=== PATIENT | male | born 2000 | race African-American/Black ===

== ENCOUNTER 2023-01-24 00:01 | Emergency (ER) | payer OTHER, SELFPAY ==
[2023-01-24 00:02] VITALS: BP 113/70; PULSE 91; RESP 18; TEMP 37.2; O2SAT 100; BMI 25.4
--- NOTE | 2023-01-24 00:48 | EX.ED.DYSGE1 ---
HPI History of Present Illness Chief Complaint: General Illness Narrative Narrative: 22-year-old male who denies significant past medical history presents with sore throat, body aches and muscle aches that he has had for the last day. States it started out more as a sore throat. He has pain with swallowing. He may have had a slight cough. He took ibuprofen prior to arrival. He denies any neck pain, or other symptoms. He thinks he may have strep throat. He is a smoker. PFSH PFS Medical History no medical history Allergy/AdvReac Type Severity Reaction Status Date / Time coconut Allergy Mild Rash Verified 01/24/23 00:05 Social History Smoking Status: Current every day smoker tobacco type: cigarettes ROS ROS ED ROS Narrative Constitutional: No fever, no chills. HEENT: Positive sore throat. No neck pain. No loss of vision. No rhinorrhea. Cardiovascular: No chest pain. No palpitations. No pedal edema. Respiratory: Occasional cough, no shortness of breath. Abdominal: No abdominal pain. No nausea. No vomiting. Genitourinary: No dysuria. No hematuria. Musculoskeletal: Multiple myalgias. No arthralgias. Neurologic: No headaches. No dizziness. No lightheadedness. Skin: No rash. No change in color. Psychiatric: No depression. No anxiety. EXAM Physical Exam Narrative Exam Narrative: Afebrile. Vital signs noted. HEENT: Normocephalic. Atraumatic. PERRL, EOMI. Neck soft and supple. No point tenderness or step off. No meningismus. Positive pharyngeal erythema. Airway patent. No tonsillar exudate. No drooling or trismus. Questionable cervical lymphadenopathy. Cardiovascular: Regular rate and rhythm. No murmurs, rubs, or gallops appreciated. Respiratory: No tachypnea. Lungs clear to auscultation bilaterally. Gastrointestinal: Abdomen soft, nontender, with normoactive bowel sounds. No rebound or guarding. Neurological: Awake. Alert. Nonfocal, nonlateralizing. Skin: No rash. Normal color. No pallor. Musculoskeletal: No pedal edema. Full range of motion extremities. Const Vital Signs: 01/24/23 00:02 Temperature 99.0 F Temperature Source Temporal Pulse Rate 91 Respiratory Rate 18 Blood Pressure 113/70 Blood Pressure Mean 84 Pulse Ox 100 Oxygen Delivery Method Room Air MDM MDM MDM Narrative Medical decision making narrative: In the differential diagnosis is strep pharyngitis versus COVID versus influenza versus other viral etiology. His pulse ox is 100% on room air. I do not feel laboratory work/blood work or chest x-ray is indicated. He was swabbed for strep and for COVID and influenza. He will be given Decadron 8 mg orally as a one-time dose for pharyngitis. Reviewed his respiratory swabs and he has negative for COVID and influenza a and B, and his strep is negative with cultures pending. I do not feel antibiotics are indicated at this time. Treatment be symptomatic. Smoking cessation was discussed. I feel he can be discharged safely home and that he does not require observation at this time. Disposition is discharged home in stable condition. Discharge Plan Triage Chief Complaint: General Illness ED Provider: Jay Lance Dx/Rx/DC Orders Clinical Impression: Viral syndrome, Pharyngitis Instructions: When You Have a Sore Throat, ED Pharyngitis, Viral, ED Viral Syndrome (Adult) Stand Alone Forms: ED Work / School Excuse Primary Care Provider: NOT,DEFINED Referrals: Dominick Macias MD [Med Staff - Active Staff] - As soon as possible NOT,DEFINED [Primary Care Provider] - Activity Restrictions/Additional Instructions: Drink plenty of oral fluids. Take Tylenol or ibuprofen or other [id number] analgesics as needed for pain. Your strep throat culture is currently pending. They will call you if it becomes positive. Disposition Disposition: Home, Self Care
[2023-01-24] MEDS: dexAMETHasone 4 MG Tablet 8 MG PO (01:18)
== END 2023-01-24 01:31 | disposition home or self-care (01) ==
LOC: ED 01:27
PROVIDERS: Emergency Provider Emergency Medicine; Visit Provider Emergency Medicine
DX: J02.9 Acute pharyngitis, unspecified (principal); B34.9 Viral infection, unspecified; F17.210 Nicotine dependence, cigarettes, uncomplicated; Z20.822 Contact with and (suspected) exposure to COVID-19
CPT/HCPCS: 87077; 87428; 87880; 99283

== ENCOUNTER 2023-02-01 18:37 | Emergency (ER) | payer OTHER, SELFPAY ==
[2023-02-01 18:38] VITALS: BP 126/78; PULSE 89; RESP 14; TEMP 36.4; O2SAT 98; BMI 25.8
[2023-02-01 19:15] VITALS: BP 126/78; PULSE 89; RESP 14; O2SAT 98
--- NOTE | 2023-02-01 19:16 | EDS_ITS ---
HPI HPI - URI History of Present Illness Chief Complaint: Sore Throat Informant: patient Narrative Narrative: Patient presents for sore throat for about a week, he was seen here at the beginning of it and had a negative rapid strep, he states he has been taking ibuprofen but now the pain is only on the right and has been getting worse. He is able to swallow but it hurts, he is able to talk but it hurts. He had some fevers at the beginning but he has not had any more that he knows of. No coughing, runny nose, congestion, earache, or chest symptoms. ROS ROS ED Constitutional Constitutional ED: Reports fever(s) and subjective; Denies chills ENT ENT ED: Reports as per HPI and sore throat; Denies ear pain or rhinorrhea Cardiovascular Cardiovascular: Denies chest pain or palpitations Respiratory/Chest Respiratory/Chest: Denies cough or dyspnea Gastrointestinal Gastrointestinal: Denies abdominal pain, diarrhea, nausea or vomiting Genitourinary Genitourinary ED: Denies dysuria or hematuria Musculoskeletal Musculoskeletal: Denies myalgias or neck pain Integumentary Denies abscess or rash Neurologic Neurologic: Denies headache(s), paresthesias or weakness Psychiatric Psychiatric: Denies depression or suicidal thoughts Endocrine Endocrinology: Denies polydipsia or polyuria PFSH PFSH Medical History no medical history no medical history Home Medications amoxicillin 500 mg tablet 500 mg PO TID #30 tabs 02/01/23 [Rx Last Taken Unk nown] Allergy/AdvReac Type Severity Reaction Status Date / Time coconut Allergy Mild Rash Verified 02/01/23 18:39 Social History Smoking Status: Current every day smoker tobacco type: cigarettes EXAM Physical Exam Const Vital Signs: 02/01/23 18:38 Temperature 97.6 F L Temperature Source Oral Pulse Rate 89 Respiratory Rate 14 Blood Pressure 126/78 H Blood Pressure Mean 94 Pulse Ox 98 Oxygen Delivery Method Room Air Positive well nourished and well developed General Appearance ED: well developed and NAD HEENT Reports moist mucous membranes HEENT Narrative: Posterior oropharyngeal and bilateral tonsillar erythema. No exudates. Prominence of the right tonsillar pillar without abscess. No trismus. Floor of mouth soft and nondistended no tongue elevation. normocephalic and atraumatic Throat: posterior oropharynx abnormal Eyes PERRL and EOMs intact bilaterally Neck supple and no meningeal signs Neck Narrative: Mild tender right submandibular anterior lymphadenopathy no posterior lymphadenopathy. Resp normal respiratory effort and clear to auscultation bilaterally Cardio no murmurs Rate: regular rate Rhythm: regular rhythm Neuro oriented x3, CN's II-XII intact bilaterally and no sensory deficits noted Sensorium / Orientation: alert Motor Exam: strength 5/5 throughout Skin Lesions: no lesions Rashes: no rashes MDM MDM MDM Narrative Medical decision making narrative: This looks like peritonsillar cellulitis that I would treat empirically with antibiotics. I went back and reviewed his prior testing in the emergency department, he had a rapid strep that was negative, but apparently the culture returned positive for strep group A. Therefore, instead of treating him with Augmentin I think amoxicillin will be enough, he is comfortable with that plan. History & Record Review Additional record(s) reviewed:: Prior labs Discharge Plan Triage Chief Complaint: Sore Throat ED Provider: Pro Stearns Dx/Rx/DC Orders Clinical Impression: Peritonsillar cellulitis, Strep throat Instructions: ED Pharyngitis, Strep (Confirmed) Prescriptions: New amoxicillin 500 mg tablet 500 mg PO TID Qty: 30 0RF Primary Care Provider: Care Physician,No Primary Referrals: Doctor,Your [Non-Staff] - 1 Week if not improving Disposition Disposition: Home, Self Care
== END 2023-02-01 19:30 | disposition home or self-care (01) ==
PROVIDERS: Emergency Provider Emergency Medicine; Visit Provider Emergency Medicine
DX: J36 Peritonsillar abscess (principal); F17.210 Nicotine dependence, cigarettes, uncomplicated
CPT/HCPCS: 99282

== ENCOUNTER 2023-06-03 17:10 | Emergency (ER) | payer OTHER, SELFPAY ==
[2023-06-03 17:10] VITALS: BP 96/77; PULSE 117; RESP 16; TEMP 37.2; O2SAT 98; BMI 23.1
--- NOTE | 2023-06-03 19:06 | ED.RN ---
PT NOT IN DEPT
--- OUTSIDE RECORDS SUMMARY | 2023-06-03 19:12 | XMS RPT_ITS | CCD ---
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 14 capsule 0 12/27/2022 01/03/2023 Active Completed/Discontinued Medications Medication Drug Class(es) Dates Sig (Normalized) Sig (Original) cefTRIAXone 500 mg injection (1 source) Cephalosporin Antibacterial Start: 12-27-2022 End: 12-27-2022 cefTRIAXone 500 mg intramuscular injection (ROCEPHIN) Problems Problem Classification Problem Date Documented Da te Episodic/Chronic Immunizations and screening for infectious disease (1 source) Exposure to sexually transmissible disorder; Translations: [Contact with and (suspected) exposure to infections with a predominantly sexual mode of transmission] 12-27-2022 Episodic Results Test Name Value Interpretation Reference Range Facil ity Vital Signs Date Time Vital Sign Value Performing Clinician Faci litgabe 12-27-2022 17:07-0400 Body temperature 97.81 [degF] Jesus Manuel Galvez APRN.CNP Work Phone: [facility] 12-27-2022 17:07-0400 Body weight 72.67 kg Jesus Manuel Galvez APRN.CNP Work Phone: [facility] 12-27-2022 17:07-0400 Diastolic blood pressure 64 mm[Hg] Jesus Manuel Galvez APRN.LABOR ECONOMIST Work Phone: [facility] 12-27-2022 17:07-0400 Heart rate 79 /min Jesus Manuel Penddeloris MALWARE ANALYST.LABOR ECONOMIST Work Phone: [facility] 12-27-2022 17:07-0400 Respiratory rate 16 /min Jesus Manuel Lenny MALWARE ANALYST.LABOR ECONOMIST Work Phone: [facility] 12-27-2022 17:07-0400 SaO2% (BldA) [Mass fraction] 98 % Jesus Manuel Lenny MALWARE ANALYST.LABOR ECONOMIST Work Phone: [facility] 12-27-2022 17:07-0400 Systolic blood pressure 122 mm[Hg] [facility] MALWARE ANALYST.LABOR ECONOMIST Work Phone: [facility] Encounters Encounter Date Encounter Type Care Provider Facility Start: 01-20-2023 Telephone encounter Fauzia Gordo Christianson Ph Work Phone: Infectious Disease Plan of Treatment Date Care Activity Detail Author Start: 01-03-2023 Influenza vaccination [facility] Start: 05-05-2022 DEPRESSION ASSESSMENT DEPRESSION ASSESSMENT [facility] Start: 07-18-2019 Urine microalbumin profile [facility] Start: 2018 HEPATITIS C SCREENING HEPATITIS C SCREENING [facility] Start: 2018 HIV SCREENING HIV SCREENING [facility] Start: 2016 Meningococcal B Vaccine: Consider Based On Risk (1 of 2 - Patient Seeks Protection) Meningococcal B Vaccine: Consider Based On Risk (1 of 2 - Patient Seeks Protection) [facility] Start: 2016 MENINGOCOCCAL B: Consider based on risk (1 of 2 - Patient Seeks Protection) MENINGOCOCCAL B: Consider based on risk (1 of 2 - Patient Seeks Protection) [facility] Start: 2014 PEDS TO ADULT TRANSITION ANNUAL ASSESSMENT PEDS TO ADULT TRANSITION ANNUAL ASSESSMENT [facility] Start: 2012 PEDS TO ADULT TRANSITION INITIAL DISCUSSION PEDS TO ADULT TRANSITION INITIAL DISCUSSION [facility] Start: 2009 HPV VACCINE (1 - Male 2-dose series) HPV VACCINE (1 - Male 2-dose series) [facility] Start: 2006 PNEUMOCOCCAL (1 - PCV) PNEUMOCOCCAL (1 - PCV) [facility] Start: 2006 Pneumococcal vaccination Pneumococcal Vaccine (1 - PCV) [facility] Start: 01-17-2001 COVID-19 VACCINE (#1) COVID-19 VACCINE (#1) [facility] Start: 2000 HEPATITIS B (1 of 3 - 3-dose series) HEPATITIS B (1 of 3 - 3-dose series) [facility] Start: 2000 Hepatitis B Vaccine (1 of 3 - 3-dose series) Hepatitis B Vaccine (1 of 3 - 3-dose series) [facility] Chlamydia trachomatis+Neisseria gonorrhoeae DNA [Presence] in Unspecified specimen by REYES with probe detection GONORRHEA/CHLAMYDIA NAAT Lab Routine STD exposure 12/27/2022 5:55 PM EDT [facility] Work Phone: Payers Date Payer Category Payer Unknown [facility] PPO xx [id number] 2019-Present [phone] [address] [place] [address] PPO [id number] 2019 Unknown [id number] Social History Date Type Detail Facility Start: [facility] History of tobacco use Cigarette Smoker [facility] Start: 12-27-2022 Tobacco use and exposure Smoke less tobacco non-user [facility] Start: 04-14-2020 End: 12-27-2022 History of Social function [facility] Start: 04-14-2020 End: 12-27-2022 Tobacco use panel [facility] National Score (1-10 0), lower number is lower risk Not on file [facility] Start: 2000 Sex Assigned At Not on file [facility] Note 01-03-2023 Telephone Encounter - Alia Allen MA - 01/03/2023 11:00 AM EDTTelephone Encounter - Carolin Hurst - 12/30/2022 5:54 PM EDTTelephone Encounter - Billie Rubin MA - 12/30/2022 8:14 AM EDT Note Date & Type Note Facility 01-03-2023 Miscellaneous Notes Formattin g of this note might be different from the original. Patient has not returned calls and does not have active MyChart. Address listed also incorrect. Patient was treated at time of visit for listed conditions. Encounter will be closed. Alia Allen MA Unable to reach patient. Mailbox full/Mailbox not set up/ Number incorrect. Please try again later. Carolin Hurst Attempted to call pt again, no answer. Voicemail is not set up will try again later. Billie Rubin MA Attempted to call pt, voicemail isn't set up. Will try again later. Billie Rubin MA ----- Message from Savannah Kwon APRN.LABOR ECONOMIST sent at 12/28/2022 3:45 PM EDT ----- Gonorrhea and chlamydia tests were positive. He was treated for both of these at the visit. He should refrain from intercourse until treatment is complete. All partners should be advised and tested. Savannah Kwon APRN.LABOR ECONOMIST documented in this encounter [facility] Progress note 12-27-2022 Note Date & Type Note Facility 12-27-2022 Note HNO ID: [id number] Author: Jesus Manuel Galvez APRN.LABOR ECONOMIST Service: ? Author Type: Nurse Practitioner Type: Progress Notes Filed: 12/27/2022 5:58 PM Note Text: Subjective HPI Nontoxic male presents urgent care requesting STD testing. Patient states girlfriend tested positive for chlamydia and gonorrhea. He has been sexually active with this partner multiple times over the last month. Does not use protection. Denies any symptoms. No OTC medication use. No pain. No dysuria frequency urgency penile discharge rashes testicular pain scrotal swelling testicular swelling. Past medical history prescription medication use allergies reviewed. .Patient presents with: STD check: STD check-girlfriend positive for gonorrheae and chlamydia History reviewed. No pertinent past medical history. No past surgical history on file. ALLERGIES Patient has no known allergies. MEDICATIONS No prescriptions on file. No family history on file. Social History Tobacco Use Smoking status: Every Day Types: Cigarettes Smokeless tobacco: Never BP 122/64 Pulse 79 Temp 36.6 ?C (97.8 ?F) (Tympanic) Resp 16 Wt 72.7 kg (160 lb 3.2 oz) SpO2 98% Review of Systems Constitutional: Negative for chills, fever and malaise/fatigue. HENT: Negative for congestion, ear discharge, ear pain, sinus pain and sore throat. Eyes: Negative for blurred vision, pain, discharge and redness. Respiratory: Negative for cough, hemoptysis, sputum production, shortness of breath, wheezing and stridor. Cardiovascular: Negative for chest pain. Gastrointestinal: Negative for abdominal pain, diarrhea, nausea and vomiting. Genitourinary: Negative. Musculoskeletal: Negative for myalgias. Skin: Negative for itching and rash. Neurological: Negative for dizziness and headaches. Objective Physical Exam Constitutional: General: He is not in acute distress. Appearance: He is not toxic-appearing. HENT: Head: Normocephalic. Nose: Nose normal. Eyes: Pupils: Pupils are equal, round, and reactive to light. Cardiovascular: Rate and Rhythm: Normal rate. Pulmonary: Effort: Pulmonary effort is normal. No respiratory distress. Breath sounds: No wheezing, rhonchi or rales. Abdominal: Palpations: Abdomen is soft. Tenderness: There is no abdominal tenderness. There is no right CVA tenderness, left CVA tenderness or guarding. Genitourinary: Comments: Deferred centimeters. Musculoskeletal: Cervical back: Normal range of motion. Skin: General: Skin is warm and dry. Neurological: General: No focal deficit present. Mental Status: He is alert. ASSESSMENT/PLAN: 1. STD exposure - ICD9: V01.6, ICD10: Z20.2 - GONORRHEA/CHLAMYDIA NAAT - CEFTRIAXONE 500 MG SOLUTION FOR INJECTION Diagnosis STD exposure. With positive exposure without protection patient will be treated for gonorrhea and chlamydia at today's visit. Rocephin IM in office doxycycline sent to pharmacy. Patient was educated on supportive therapies. Patient will follow up with primary care provider as needed. Patient was instructed to immediately proceed to emergency room for any new, worsening, or symptoms lasting longer than anticipated. The patient's clinical presentation is otherwise unremarkable at this time. Based on exam and clinical finding, the patient is stable for discharge. Plan of care was discussed with patient. Patient verbalizes understanding and agrees to plan of care. This note was generated using Myxer software. It may contain errors in wording, punctuation, or spelling. Jesus Manuel Galvez APRN.YAO [facility] History of Present illness Narrative 12-27-2022 Jesus Manuel Galvez APRN.YAO - 12/27/2022 5:14 PM EDT Note Date & Type Note Facility 12-27-2022 History of Presen t illness Narrative Subjective HPI Nontoxic male presents urgent care requesting STD testing. Patient states girlfriend tested positive for chlamydia and gonorrhea. He has been sexually active with this partner multiple times over the last month. Does not use protection. Denies any symptoms. No OTC medication use. No pain. No dysuria frequency urgency penile discharge rashes testicular pain scrotal swelling testicular swelling. Past medical history prescription medication use allergies reviewed. .Patient presents with: STD check: STD check-girlfriend positive for gonorrheae and chlamydia History reviewed. No pertinent past medical history. No past surgical history on file. ALLERGIES Patient has no known allergies. MEDICATIONS No prescriptions on file. No family history on file. Social History Tobacco Use Smoking status: Every Day Types: Cigarettes Smokeless tobacco: Never BP 122/64 Pulse 79 Temp 36.6 C (97.8 F) (Tympanic) Resp 16 Wt 72.7 kg (160 lb 3.2 oz) SpO2 98% Review of Systems Constitutional: Negative for chills, fever and malaise/fatigue. HENT: Negative for congestion, ear discharge, ear pain, sinus pain and sore throat. Eyes: Negative for blurred vision, pain, discharge and redness. Respiratory: Negative for cough, hemoptysis, sputum production, shortness of breath, wheezing and stridor. Cardiovascular: Negative for chest pain. Gastrointestinal: Negative for abdominal pain, diarrhea, nausea and vomiting. Genitourinary: Negative. Musculoskeletal: Negative for myalgias. Skin: Negative for itching and rash. Neurological: Negative for dizziness and headaches. Objective Physical Exam Constitutional: General: He is not in acute distress. Appearance: He is not toxic-appearing. HENT: Head: Normocephalic. Nose: Nose normal. Eyes: Pupils: Pupils are equal, round, and reactive to light. Cardiovascular: Rate and Rhythm: Normal rate. Pulmonary: Effort: Pulmonary effort is normal. No respiratory distress. Breath sounds: No wheezing, rhonchi or rales. Abdominal: Palpations: Abdomen is soft. Tenderness: There is no abdominal tenderness. There is no right CVA tenderness, left CVA tenderness or guarding. Genitourinary: Comments: Deferred centimeters. Musculoskeletal: Cervical back: Normal range of motion. Skin: General: Skin is warm and dry. Neurological: General: No focal deficit present. Mental Status: He is alert. ASSESSMENT/PLAN: 1. STD exposure - ICD9: V01.6, ICD10: Z20.2 - GONORRHEA/CHLAMYDIA NAAT - CEFTRIAXONE 500 MG SOLUTION FOR INJECTION Diagnosis STD exposure. With positive exposure without protection patient will be treated for gonorrhea and chlamydia at today's visit. Rocephin IM in office doxycycline sent to pharmacy. Patient was educated on supportive therapies. Patient will follow up with primary care provider as needed. Patient was instructed to immediately proceed to emergency room for any new, worsening, or symptoms lasting longer than anticipated. The patient's clinical presentation is otherwise unremarkable at this time. Based on exam and clinical finding, the patient is stable for discharge. Plan of care was discussed with patient. Patient verbalizes understanding and agrees to plan of care. This note was generated using Myxer software. It may contain errors in wording, punctuation, or spelling. Jesus Manuel Galvez APRN.YAO documented in this encounter [facility] Evaluation note Note Date & Type Note Facility documented in this encounter [facility] Medications Administered Section Inactive Administered Medications - up to 3 most recent administrations Medication Order MAR Action Action Date Dose Rate Site cefTRIAXone 500 mg intramuscular injection (ROCEPHIN) 500 mg, INTRAMUSCULAR, ONCE, 1 dose, On Fri12/27/22 at 1730, Please document the antimicrobial indication: Empiric Given 12/27/2022 5:55 PM EDT 500 mg Buttocks, Right Summary Purpose Family History No Family History Records Found Advance Directives No Advanced Directives Records Found Additional Source Comments Source Comments (unrecognize d section and content) In the event this informatio n is protected by the Federal Confidentiality of Alcohol and Drug Abuse Patient Records regulations: The Federal rules restrict any use of the information to criminally investigate or prosecute any alcohol or drug abuse patient.[facility] the event this information is protected by the Federal Confidentiality of Alcohol and Drug Abuse Patient Records regulations: The Federal rules restrict any use of the information to criminally investigate or prosecute any alcohol or drug abuse patient.[facility] the event this information is protected by the Federal Confidentiality of Alcohol and Drug Abuse Patient Records regulations: The Federal rules restrict any use of the information to criminally investigate or prosecute any alcohol or drug abuse patient.[facility] Reason for Visit (unrecogniz ed section and content) Reason Comments Results Reason Comments Education Of Patient/family HIV PrEP edu cation (unrecognized sect ion and content) No Status Records Found INFORMATION SOURCE (unrecogn ized section and content) FOR RECORDS PERTAINING TO PATIENTS WHO ARE OR HAVE BEEN ENROLLED IN A CHEMICAL DEPENDENCY/SUBSTANCEABUSE PROGRAM, SOME INFORMATION MAY BE OMITTED. This clinical summary was aggregated from multiple sources. Caution should be exercised in using it in the provision of clinical care. This summary normalizes information from multiple sources, and as a consequence, information in this document may materially change the coding, format and clinical context of patient data. In addition, data may be omitted in some cases. CLINICAL DECISIONS SHOULD BE BASED ON THE PRIMARY CLINICAL RECORDS. [facility] [employer] [facility]. provides no warranty or guarantee of the accuracy or completeness of information in this document.
== END 2023-06-03 18:23 | disposition left against medical advice (07) ==
LOC: ED 19:10
DX: R11.2 Nausea with vomiting, unspecified (principal); R19.7 Diarrhea, unspecified; Z53.21 Procedure and treatment not carried out due to patient leaving prior to being seen by health care provider

== ENCOUNTER 2023-07-10 18:14 | Emergency (ER) | payer OTHER, SELFPAY ==
[2023-07-10 18:15] VITALS: BP 138/77; PULSE 85; RESP 16; TEMP 36.8; O2SAT 98; BMI 23.3
--- NOTE | 2023-07-10 18:35 | RAD_ITS ---
STUDY: X-RAY - LEFT WRIST REASON FOR EXAM: Male, 22 years old. PAIN, INJURY TECHNIQUE: 3 view(s) of the wrist were obtained. COMPARISON: None. FINDINGS: Normal visualized distal radius and ulna. Normal radiocarpal articulation. Normal distal radioulnar articulation. Normal carpal bones. Normal carpal articulations. Normal carpometacarpal articulation of the thumb. Normal second through fifth carpometacarpal articulations. Normal visualized metacarpal bones. The soft tissue structures are unremarkable. RAD/Wrist min 3 Views IMPRESSION: Normal x-ray examination of the wrist. Electronically Signed: Jesus Manuel Villasenor MD at 19:18 EST ,
--- NOTE | 2023-07-10 20:35 | EDS_ITS ---
HPI History of Present Illness HPI Narrative: Patient presents with left wrist pain that began earlier today. Patient states he punched a wall. Patient states he punched a wall with both hands but his left wrist is worse. Patient states he took a nap after he punched the villagran but when he woke up his left wrist pain was severe. Patient states it felt similar to a prior wrist fracture he had in his right wrist years ago. Patient describes his pain as aching and stabbing. Patient states it is worse with movement and better with rest. Patient denies any paresthesias or weakness. Patient is unsure of his last tetanus. Chief Complaint: Upper Extremity Injury Informant: patient Occured/Mechanism Mechanism/Context: Yes direct blow Onset/Context/Timing Onset: Today Context: Gradual Onset Timing: Continuous Quality of Pain: Aching and Stabbing Worsened by: Movement Relieved by: Rest Associated Symptoms Associated Symptoms: Negative for Parasthesia, Weakness or Loss of Funtion Narrative Tetanus Immunization: Unknown PFSH PFSH Medical History no medical history no medical history Home Medications amoxicillin 500 mg tablet 500 mg PO TID #30 tabs 02/01/23 [Rx Last Taken Unknown] Allergy/AdvReac Type Severity Reaction Status Date / Time coconut Allergy Mild Rash Verified 07/10/23 18:15 Surgical History no surgical history no surgical history Social History Smoking Status: Current every day smoker tobacco type: cigarettes ROS ROS ED Constitutional Constitutional ED: Reports chills and subjective; Denies fever(s) Eyes Eyes: Denies blurry vision or change in vision ENT ENT ED: Denies rhinorrhea or sore throat Cardiovascular Cardiovascular: Denies chest pain or palpitations Respiratory/Chest Respiratory/Chest: Denies cough or dyspnea Gastrointestinal Gastrointestinal: Denies nausea or vomiting Genitourinary Genitourinary ED: Denies dysuria or hematuria Musculoskeletal Musculoskeletal: Denies back pain or neck pain Integumentary Denies abscess or rash Neurologic Neurologic: Denies headache(s) or weakness Allergic/Immunologic Allergic/Immunologic ED: Denies mouth swelling or urticaria EXAM Physical Exam Const Vital Signs: 07/10/23 18:15 Temperature 98.2 F Temperature Source Temporal Pulse Rate 85 Respiratory Rate 16 Blood Pressure 138/77 H Blood Pressure Mean 97 Pulse Ox 98 Oxygen Delivery Method Room Air Positive well nourished and well developed General Appearance ED: well developed and NAD HEENT Reports moist mucous membranes Neck supple Extremity Extremity Narrative: There is tenderness over the left wrist on the volar aspect. There is no obvious deformity noted. Range of motion was limited in all motions of the left wrist secondary to pain. There is no tenderness of the anatomic snuffbox. Radial pulses are equal bilaterally. Strength is 5/5 in the radial, median, and ulnar areas. Sensation was intact to light touch in the radial, median, and ulnar areas. Neuro oriented x3, CN's II-XII intact bilaterally, moves all extremities, no focal motor deficits and no sensory deficits noted Sensorium / Orientation: alert Motor Exam: strength 5/5 throughout Skin Skin Narrative: There are multiple abrasions over the dorsal aspects of the bilateral hands. There is no active bleeding noted. There is no surrounding erythema. Trauma: abrasion MDM MDM MDM Narrative Medical decision making narrative: Differential diagnosis includes fracture, sprain, and contusion. X-rays of the left wrist will be obtained to assess for fracture, and sprain. Radiography Diagnostic Testing: Clinical Impression(s) from Imaging Studies Wrist X-Ray 07/10/23 18:35 IMPRESSION: Normal x-ray examination of the wrist. Electronically Signed: Jesus Manuel Villasenor MD at 19:18 EST , X-rays of the left wrist were obtained. There are 3 views. On my independent interpretation, there is no acute fracture or dislocation noted. There is no soft tissue swelling noted. Radiologist also interpreted the x-rays and agrees. Treatment and Re-Evaluation Narrative: Patient was given a tetanus booster. Bacitracin dressings were applied to the abrasions. Patient was given a cock-up splint for his left wrist. Patient was instructed to ice and elevate the left wrist. Patient was instructed to follow- up with his primary care physician in 1 to 2 weeks for reevaluation. Patient understood and was agreeable with the plan. All questions were answered. Discharge Plan Triage Chief Complaint: Upper Extremity Injury ED Provider: Norman Baumann Dx/Rx/DC Orders Clinical Impression: Abrasion of right hand and fingers, Abrasion of left hand and fingers, Contusion of left wrist, initial encounter Instructions: ED Contusion, Upper Extremity Prescriptions: No Action amoxicillin 500 mg tablet 500 mg PO TID Qty: 30 0RF Primary Care Provider: Care Physician,No Primary Referrals: Diamond Marlow MD [Med Staff - Hospice/Home Health Aide] - 1-2 Weeks Care Physician,No Primary [Primary Care Provider] - Disposition Disposition: Home, Self Care
== END 2023-07-10 20:59 | disposition home or self-care (01) ==
LOC: ED 20:53
PROVIDERS: Emergency Provider Emergency Medicine; Visit Provider Emergency Medicine
DX: S60.212A Contusion of left wrist, initial encounter (principal); S60.511A Abrasion of right hand, initial encounter; S60.512A Abrasion of left hand, initial encounter; W22.01XA Walked into wall, initial encounter; Z23 Encounter for immunization; F17.210 Nicotine dependence, cigarettes, uncomplicated
CPT/HCPCS: 73110; 99282